=== PATIENT | male | born 1980 | race Caucasian/White ===

== ENCOUNTER 2022-05-18 18:59 | Emergency (ER) | payer BC ==
[2022-05-18 20:10] VITALS: BP 160/97; PULSE 80; RESP 22; TEMP 98.4
[2022-05-18] MEDS ORDERED: DIPH,PERTUS(ACELL)TETVAC-LF 0.5 ML VIAL IM ONE (20:43)
[2022-05-18] MEDS ORDERED: HYDROcodone/APAP 5-325MG 1 EACH TAB PO STA (20:43)
--- NOTE | 2022-05-18 20:50 | XR ---
EXAMINATION TYPE: XR hand complete RT DATE OF EXAM: 05/18/2022 COMPARISON: NONE HISTORY: Pain TECHNIQUE: 4 views FINDINGS: The metacarpals are intact. There is a transverse fracture of the tuft of the distal phalan x of the ring finger right hand. No evidence of a foreign body. No significant displacement. Carpal b ones are intact. IMPRESSION: Nondisplaced tuft fracture of the distal phalanx of the right ring finger.
[2022-05-18] MEDS ORDERED: LIDOCAINE 1% INJ 10MG/ML (5 ML VIAL-PF) SQ ONE (21:04)
--- NOTE | 2022-05-18 22:00 | ED ---
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 -: hour(s) (3) Extremity Location: Right: Hand (ring finger) Place: outdoors Context: crush injury Associated Symptoms: none Treatments Prior to Arrival: bandage - Related Data Previous Rx's Medication Instructions Recorded Cephalexin [Keflex] 500 mg PO Q6HR 10 Days #40 cap 05/18/22 HYDROcodone/APAP 5-325MG [[place] 1 tab PO Q4HR PRN 3 Days #18 tab 05/18/22 5-325] Allergies Allergy/AdvReac Type Severity Reaction Status Date / Time No Known Allergies Allergy Verified 05/18/22 20:10 Review of Systems ROS Statement: Those systems with pertinent positive or pertinent negative responses have been documented in the HPI. ROS Other: All systems not noted in ROS Statement are negative. Past Medical History Additional Past Medical History / Comment(s): back abscess History of Any Multi-Drug Resistant Organisms: None Reported Past Surgical History: No Surgical Hx Reported Past Psychological History: No Psychological Hx Reported Smoking Status: Never smoker Past Alcohol Use History: Occasional Past Drug Use History: None Reported General Exam Limitations: no limitations General appearance: alert, in no apparent distress Head exam: Present: atraumatic Eye exam: Present: normal appearance. Absent: scleral icterus, conjunctival injection ENT exam: Present: mucous membranes moist Neck exam: Present: full ROM. Absent: tenderness, meningismus Respiratory exam: Present: normal lung sounds bilaterally. Absent: respiratory distress, accessory muscle use Cardiovascular Exam: Present: regular rate GI/Abdominal exam: Present: soft. Absent: distended Right Hand Wrist exam: Present: tenderness, swelling, laceration, ecchymosis, subungual hematoma, other (Partial amputation with nail bed avulsion. distal tip finger pad pale) Vascular: Present: normal capillary refill Neurological exam: Present: alert, oriented X3 Psychiatric exam: Present: normal affect, normal mood Skin exam: Present: warm, dry. Absent: cyanosis, diaphoretic Course Vital Signs 05/18/22 20:04 Temperature 98.4 F Pulse Rate 80 Respiratory 22 Rate Blood Pressure 160/97 O2 Sat by Pulse 99 Oximetry Procedures - Procedures Initial comment: Trephination of the nail bed - Laceration Laceration #1 Consent Obtained: verbal consent Indication: laceration Site: hand (right ring finger distal tip) Description: irregular Anesthetic Used: lidocaine 1% Anesthesia Technique: local infiltration, nerve block Pre-repair: irrigated extensively Type of Sutures: nylon Size of Sutures: 5-0 Number of Sutures: 8 Technique: simple, interrupted Patient Tolerated Procedure: well, no complications Medical Decision Making - Medical Decision Making X-ray shows a nondisplaced fracture of the distal phalanx of the right ring fin dhaval. Metacarpals and carpal bones are intact. Wound was irrigated with saline solution and 8 sutures placed to secure finger pad. The avulsed nailbed was trephinated and sutured in place. There was good capillary refill at the end of the procedure. I did explain to the patient that the severity of the injury may cause loss of the fingertip. I stressed the importance of following up with hand surgery tomorrow. The wound was dressed with nonadhering dressing, bulky gauze and aluminum splint. He was given and prescribed pain medication and antibiotics. Patient and state understanding of the importance of follow- up and adherence to antibiotics. Dr. Elizabeth at bedside. Disposition Clinical Impression: Laceration, Finger fracture, right Disposition: HOME SELF-CARE Condition: Good Instructions (If sedation given, give patient instructions): Finger Fracture (ED), Finger Laceration (ED) Additional Instructions: Keep the wound clean and dry and splint and dressing in place for the next 24 hours. Follow-up with hand surgery tomorrow. Take antibiotics as prescribed. Return with any new or concerning symptoms including increased pain, fevers or signs of infection. Prescriptions: Cephalexin [Keflex] 500 mg PO Q6HR 10 Days #40 cap HYDROcodone/APAP 5-325MG [[place] 5-325] 1 tab PO Q4HR PRN 3 Days #18 tab PRN Reason: Pain Is patient prescribed a controlled substance at d/c from ED?: Yes When asked, does pt state using other controlled substances?: No If prescribed controlled substance>3 days was MAPS reviewed?: Prescribed <3 Days If opioid is for acute pain is fill amount 7 days or less?: Yes If Rx opioid, was Start Talking consent form obtained?: Yes Referrals: None,Stated [Primary Care Provider] - 1-2 days Any Johnson DO [Doctor of Osteopathic Medicine] - 1-2 days Time of Disposition: 22:07
[2022-05-18] MEDS ORDERED: ACET/COD 300 MG/30 MG STARTER PACK 6 TAB BTL PO STA (22:05)
[2022-05-18] MEDS ORDERED: BACITRACIN OINT 1 EACH PACKET TOPICAL ONE (22:11)
== END 2022-05-18 22:32 | disposition home or self-care (01) ==
LOC: EC 18:59
DX: S61.214A Laceration without foreign body of right ring finger without damage to nail, initial encounter (principal); Z23 Encounter for immunization; W23.1XXA Caught, crushed, jammed, or pinched between stationary objects, initial encounter
CPT/HCPCS: 73130; 90715; 99283; 90471; J2001